=== PATIENT | female | born 2000 | race Caucasian/White ===

== ENCOUNTER 2020-09-05 09:12 | Emergency (ER) | payer SELFPAY ==
[~2020-09-05] VITALS: Ht 157.5 cm; Wt 50.0 kg
[2020-09-05 09:22] VITALS: TEMP 98.6
[2020-09-05 11:05] VITALS: BP 122/87; PULSE 101
== END 2020-09-05 11:05 | disposition home or self-care (01) ==
LOC: COL.ER 09:12
DX: J20.9 Acute bronchitis, unspecified (principal); Z20.822 Contact with and (suspected) exposure to COVID-19

== ENCOUNTER 2021-09-27 17:02 | Emergency (ER) | payer SELFPAY ==
[~2021-09-27] VITALS: Ht 157.5 cm; Wt 53.6 kg
[2021-09-27 17:44] VITALS: TEMP 98.4
[2021-09-27 19:06] LABS: COLLECTION METHOD CLEAN CATCH
[2021-09-27 19:14] LABS: PH 7 (5-8); URINE APPEARANCE Clear (CLEAR/HAZY); URINE BACTERIA None Seen /hpf (NONE SEEN); URINE BILIRUBIN Negative (NEGATIVE); URINE BLOOD 1+ (NEGATIVE); URINE COLOR Straw (YELLOW); URINE GLUCOSE Negative (NEGATIVE); URINE KETONE Negative (NEGATIVE); URINE LEUKOCYTE ESTERASE Negative (NEGATIVE); URINE NITRATE Negative (NEGATIVE); URINE PROTEIN(semi-quant) Negative (NEGATIVE); URINE RBC 0-2 /hpf (0-2); URINE UROBILINOGEN Negative (NEGATIVE)
[2021-09-27] MEDS ORDERED: NAPROSYN500 MG PO (19:51)
[2021-09-27] MEDS ORDERED: ROBAXIN 50500 MG/TAB PO (19:51)
[2021-09-27 20:05] VITALS: BP 110/72; PULSE 87
== END 2021-09-27 20:05 | disposition home or self-care (01) ==
LOC: COL.ER 17:02
PROVIDERS: Emergency Medicine
DX: M54.50 Low back pain, unspecified (principal); M54.6 Pain in thoracic spine; X50.0XXA Overexertion from strenuous movement or load, initial encounter; Y92.59 Other trade areas as the place of occurrence of the external cause; Y99.0 Civilian activity done for income or pay
CPT/HCPCS: J1885

== ENCOUNTER 2022-04-15 09:38 | Emergency (ER) | payer SELFPAY ==
[~2022-04-15] VITALS: Ht 154.9 cm; Wt 47.7 kg
[~2022-04-15 09:38] MED LIST: NAPROSYN500 MG PO; ROBAXIN 50500 MG/TAB PO
[2022-04-15 10:12] VITALS: BP 149/104; TEMP 98.1
[2022-04-15 10:50] LABS: COLLECTION METHOD CLEAN CATCH
[2022-04-15 11:12] LABS: TRICYCLIC ANTIDEPRESS URINE NEGATIVE
[2022-04-15 11:13] LABS: MUCOUS Present (NOT PRESENT); URINE BACTERIA Many /hpf (NONE SEEN); URINE COLOR Yellow (YELLOW)
[2022-04-15 11:13] LABS: BASO % 0.7 % (0.0-2.0); EOS # 0.1 K/mm3 (0.0-0.7); EOS % 1.1 % (0.0-4.0); GRAN # 3.4 K/mm3 (1.4-6.5); GRAN % 60.2 % (42.2-75.2); HEMATOCRIT 39.6 % (37.0-47.0); HEMOGLOBIN 13.4 g/dl (12.5-16.0); LYMPH # 1.7 K/mm3 (1.2-3.4); LYMPH % 31.1 % (20.0-51.0); MEAN CELL VOLUME 86 fl (80.0-100.0); MEAN CORPUSCULAR HEMOGLOBIN 29 pg (27-31); MEAN CORPUSCULAR HGB CONC 34 g/dl (33.0-37.0); MEAN PLATELET VOLUME 10.8 fl (7.4-10.4); MONO # 0.4 K/mm3 (0.1-0.6); MONO % 6.5 % (1.7-9.3); PLATELET COUNT 252 K/mm3 (130-400); RED BLOOD COUNT 4.63 M/mm3 (4.10-5.30); REDCELL DISTRIBUTION WIDTH-CV 13.2 % (11.5-14.5)
[2022-04-15 11:14] LABS: PH 6.5 (5.0-8.5); URINE APPEARANCE Hazy (CLEAR/HAZY); URINE BLOOD Negative (NEGATIVE); URINE GLUCOSE Negative (NEGATIVE); URINE KETONE Negative (NEGATIVE); URINE NITRATE Negative (NEGATIVE); URINE PROTEIN(semi-quant) Negative (NEGATIVE); URINE UROBILINOGEN 0.2 E.U/dL (0.2-1.0)
[2022-04-15 11:18] LABS: ALANINE AMINOTRANSFERASE 18 U/L (0-55); ALBUMIN 4.2 gm/dL (3.5-5.0); ALKALINE PHOSPHATASE 57 U/L (40-150); ANION GAP 7 mmol/L (7-16); AST,SGOT 17 U/L (5-34); BILIRUBIN,TOTAL 0.4 mg/dL (0.2-1.2); BLOOD UREA NITROGEN 5 mg/dL (7-19); CALCIUM 9.1 mg/dL (8.4-10.2); CARBON DIOXIDE 25 mmol/L (22-29); CHLORIDE 107 mmol/L (98-107); CREATININE, serum 0.81 mg/dL (0.57-1.11); GLUCOSE 98 mg/dL (70-99); POTASSIUM 3.9 mmol/L (3.5-4.5); SODIUM 139 mmol/L (136-145); TOTAL PROTEIN 7.3 gm/dL (6.2-8.1)
[2022-04-15 11:24] LABS: ACETAMINOPHEN < 1.0 ug/mL (10-30); ALCOHOL(ethanol),MEDICAL < 10 mg/dL (0-10); SALICYLATE < 5.0 mg/dL (15.0-30.0)
[2022-04-15 14:30] VITALS: PULSE 90
== END 2022-04-15 14:31 | disposition home or self-care (01) ==
LOC: COL.ER 09:38
PROVIDERS: Nurse Practitioner
DX: R45.851 Suicidal ideations (principal); S70.311A Abrasion, right thigh, initial encounter; F17.290 Nicotine dependence, other tobacco product, uncomplicated; Y33.XXXA Other specified events, undetermined intent, initial encounter